=== PATIENT | female | born 1990 | race Caucasian/White ===

== ENCOUNTER 2017-08-24 13:18 | Emergency (ER) | payer SELFPAY ==
[2017-08-24 13:34] VITALS: BP 131/80
[2017-08-24 14:12] LABS: BASOPHILS % 0.5 (0.0-1.5); EOSINOPHILS % 4.5 % (0.0-6.8); MEAN CORPUSCULAR HEMOGLOBIN 27.2 pg (28.0-34.0); MEAN CORPUSCULAR VOLUME 87.3 fl (80.0-100.0); MONOCYTES % 3.2 % (0.0-11.0); NEUTROPHILS # 5.4 # k/uL (1.4-7.7)
--- NOTE | 2017-08-24 14:15 | ED Physician Documentation ---
General Adult - HISTORIAN Historian: patient - HPI Stated Complaint: N/V weakness Chief Complaint: General Adult Additional Information: NVD, cramping abdominal pain for 4 days. Thinks she got too hot working outside. No vomiting or diarrhea today, but remains nauseated with mld cramping. Urine 2-3 x today in < 4 hours, in small amounts. LNMP 08/05. - ROS CONST: denies: fever - PAST HX Past History: none Surgeries/Procedures: other (tonsillectomy) Allergies/Adverse Reactions: Allergies Allergy/AdvReac Type Severity Reaction Status Date / Time No Known Allergies Allergy Verified 08/24/17 13:34 Home Medications: Ambulatory Orders Medication Instructions Recorded Nitrofurantoin Monohyd/M-Cryst 100 mg PO Q12H #14 capsule 08/24/17 [Macrobid 100 mg Capsule] - SOCIAL HX Smoking History: cigarettes - FAMILY HX Family History: No - VITAL SIGNS Vital Signs: Vital Signs Temp Pulse Resp BP Pulse Ox 97.9 F 102 H 17 131/80 99 08/24/17 13:26 08/24/17 13:26 08/24/17 13:26 08/24/17 13:26 08/24/17 13:26 - REVIEWED ASSESSMENTS Nursing Assessment Reviewed: Yes Vitals Reviewed: Yes ED Results Lab/Radiology - Orders Orders: ED Orders Category Date Time Status Place IV Lock 1T Care 08/24/17 13:27 Active CBC/PLATELET/DIFF Routine Lab 08/24/17 14:10 Received CMP Routine Lab 08/24/17 14:10 Received URINALYSIS Routine Lab 08/24/17 Ordered URINE HCG [URINE HCG] Stat Lab 08/24/17 13:27 Ordered ck [CREATINE KINASE] Routine Lab 08/24/17 14:10 Received 0.9 % Sodium Chloride [Normal Saline] 1,000 ml Med 08/24/17 13:54 Discontinued IV .STK-MED NORMAL SALINE @ 1000 MLS/HR ( 1000ml BOLUS) Med 08/24/17 14:12 Ordered 0.9 % Sodium Chloride [Normal Saline] 1,000 ml IV Q1H Ondansetron HCl Rapdis [Zofran Odt] Med 08/24/17 13:59 Discontinued 4 mg .ROUTE .STK-MED ONE Ondansetron HCl Rapdis [Zofran Odt] Med 07/12/18 14:12 Once 4 mg PO NOW ONE Ondansetron HCl/Pf [Zofran 4 mg/2 ml] Med 08/24/17 13:55 Discontinued 4 mg .ROUTE .STK-MED ONE General Adult Physical Exam - PHYSICAL EXAM GENERAL APPEARANCE: mild distress EENT: eye inspection normal, ENT inspection normal (but very poor dentition), pharynx normal NECK: normal inspection, supple RESPIRATORY: breath sounds normal CVS: reg rate & rhythm, heart sounds normal ABDOMEN: soft, normal bowel sounds, non-tender BACK: normal inspection, no CVA tenderness SKIN: warm/dry, normal color EXTREMITIES: normal range of motion (gait and stance), other (scattered aging bruises) NEURO: CN's nml as tested, motor nml, sensation nml Discharge Clincal Impression: Urinary tract infection Prescriptions: Nitrofurantoin Monohyd/M-Cryst [Macrobid 100 mg Capsule] 100 mg PO Q12H #14 capsule Referrals: Primary Doctor,No [Primary Care Provider] - 2 Days Condition: Good Disposition: 01 HOME, SELF-CARE Decision to Admit: NO Decision Time: 14:55
[2017-08-24] MEDS: 0.9 % SODIUM CHLORIDE 1,000 ML IV ONE ×2 (14:19→14:20)
[2017-08-24] MEDS: ONDANSETRON HCL 4 MG TAB.RAPDIS PO ONE (14:20)
[2017-08-24] MEDS: ONDANSETRON HCL/PF 4 MG/ 2ML VIAL ONE (14:20)
[2017-08-24] MEDS: ONDANSETRON HCL 4 MG TAB.RAPDIS ONE (14:20)
[2017-08-24 14:25] LABS: eGFR (African) > 60; eGFR (Non-African) > 60
[2017-08-25 08:11] LABS: APPEARANCE,URINE CLOUDY (CLEAR); COLOR,URINE YELLOW (YELLOW); OCCULT BLOOD,URINE TRACE-INTACT (NEGATIVE)
== END 2017-08-24 15:00 | disposition home or self-care (01) ==
LOC: ED 13:18
DX: N39.0 Urinary tract infection, site not specified (principal)
CPT/HCPCS: 80053; 82550; 85025; A9270; J7030; 81002; 87086; 96365; 99284; S1016

== ENCOUNTER 2018-02-21 11:40 | Emergency (ER) | payer SELFPAY ==
[2018-02-21] MEDS ORDERED: DIPHENOXYLATE /ATROPINE 2.5MG-0.025MG TABLET PO ONE (11:52)
[2018-02-21] MEDS ORDERED: ONDANSETRON HCL 4 MG TAB.RAPDIS PO ONE (11:52)
--- NOTE | 2018-02-21 12:00 | ED Physician Documentation ---
Nausea/Vomiting/Diarrhea - HISTORIAN Historian: patient - HPI Stated Complaint: nausea/vomiting/diarrhea Chief Complaint: Nausea,Vomiting,Diarrhea Additional Information: Patient presents to ED with a 3 day history of nausea/vomiting/diarrhea which has improved today. She denies fever or chills. Onset: days ago (3) Duration: waxing, waning Timing: gradual onset Context: denies: out of country travel, bad food Severity: moderate - Associated Symptoms Vomiting: frequent Diarrhea: watery Abdominal Pain: cramping - ROS CONST: denies: fever, chills CVS/RESP: denies: chest pain, shortness of breath GI/: none EYES/ENT: none MS/SKIN/LYMPH: denies: ankle swelling NEURO/PSYCH: denies: headache - PAST HX Past History: none Surgeries/Procedures: none Allergies/Adverse Reactions: Allergies Allergy/AdvReac Type Severity Reaction Status Date / Time No Known Allergies Allergy Verified 08/24/17 13:34 Home Medications: Ambulatory Orders Medication Instructions Recorded Nitrofurantoin Monohyd/M-Cryst 100 mg PO Q12H #14 capsule 08/24/17 [Macrobid 100 mg Capsule] Loperamide HCl [Imodium A-D] 2 mg PO QID PRN #20 capsule 02/21/18 Ondansetron HCl Rapdis [Zofran Odt] 4 mg PO Q8 PRN #30 tab 02/21/18 - SOCIAL HX Smoking History: cigarettes, greater than 1 pack/day Alcohol Use: none Drug Use: none - FAMILY HX Family History: none - VITAL SIGNS Vital Signs: Vital Signs Temp Pulse Resp BP Pulse Ox 131/80 08/24/17 15:00 - REVIEWED ASSESSMENTS Nursing Assessment Reviewed: Yes Vitals Reviewed: Yes ED Results Lab/Radiology - Orders Orders: ED Orders Category Date Time Status Diphenoxylate HCl/Atropine [Lomotil] Med 02/21/18 11:52 Discontinued 1 each PO NOW ONE Ondansetron HCl Rapdis [Zofran Odt] Med 02/21/18 11:52 Discontinued 4 mg PO NOW ONE Nausea Physical Exam - EXAM General Appearance: no acute distress, alert EENT: TYE Neck: No: lymphadenopathy Respiratory: chest non-tender, breath sounds normal CVS: reg rate & rhythm, heart sounds normal Abdomen: non-tender Skin: warm/dry Extremities: non-tender, no edema Neuro/Psych: oriented X3 Discharge Clincal Impression: Gastroenteritis Prescriptions: Loperamide HCl [Imodium A-D] 2 mg PO QID PRN #20 capsule PRN Reason: Diarrhea Ondansetron HCl Rapdis [Zofran Odt] 4 mg PO Q8 PRN #30 tab PRN Reason: nausea/vomiting Referrals: Primary Doctor,No [Primary Care Provider] - 2 Days Additional Instructions: 1. Tylenol and/or Ibuprofen as needed for pain/fever 2. Drink plenty of fluids to maintain proper hydration 3. Take Lomitil and Zofran as needed for diarrhea and nausea 4. Follow up with PCP within 1 week 5. Return to ED for new or worsening symptoms Condition: Stable Disposition: 01 HOME, SELF-CARE Decision to Admit: NO Date of Decison to Admit: 02/21/18 Decision Time: 12:03
[2018-02-21 14:05] VITALS: BP 142/86
== END 2018-02-21 12:20 | disposition home or self-care (01) ==
LOC: ED 11:40
DX: K52.9 Noninfective gastroenteritis and colitis, unspecified (principal)
CPT/HCPCS: 99282; 99283

== ENCOUNTER 2018-09-18 16:29 | Emergency (ER) | payer SELFPAY ==
[2018-09-18 16:53] VITALS: BP 133/83
--- NOTE | 2018-09-18 16:55 | ED Physician Documentation ---
Skin Rash - HISTORIAN Historian: patient - HPI Stated Complaint: rash Chief Complaint: Skin Rash Additional Information: Patient is a 28-year-old unkept female that presents to the ER with her boyfriend- both with rash that has appeared over the last couple of days; she describes rash as intense itching on both arms, hands-web of fingers, armpits, base of scalp/neck and face. She denies any contact with allergens, no new soaps or detergents. Rash appears to be in the form of scabies- she did not act surprised- states she has not been diagnosed with scabies in the past. Her clothes are dirty- unknown last bath- hair is dirty and oily- she picks at the scabs- she admits to a history of meth use after asking about her teeth (she priorly denied drug use)- she smells of alcohol- admits to drinking heavy daily. Discussed treatment for scabies. Onset: days ago Timing: still present Duration: persistent since Location: facial, neck, RUE, LUE, R axillary, L axillary Quality: itchy Identified Cause?: Yes (scabies) Where: home Context: Medication Exposure: none Context: Food Exposure: none Context: Other Exposure: other (scabies) - ROS CONST: none CVS/RESP: none EYES/ENT: none GI/: none MS/SKIN/LYMPH: rash NEURO/PSYCH: none - PAST HX Past History: none Other History: none Surgeries/Procedures: No Immunizations: UTD Allergies/Adverse Reactions: Allergies Allergy/AdvReac Type Severity Reaction Status Date / Time No Known Allergies Allergy Verified 08/24/17 13:34 Home Medications: Ambulatory Orders Medication Instructions Recorded NK 09/18/18 - SOCIAL HX Smoking History: greater than 1 pack/day Alcohol Use: heavy Drug Use: methamphetamines - FAMILY HX Family History: none - VITAL SIGNS Vital Signs: Vital Signs Temp Pulse Resp BP Pulse Ox 99.3 F 106 H 14 133/83 97 09/18/18 16:35 09/18/18 16:59 09/18/18 16:59 09/18/18 16:59 09/18/18 16:59 - REVIEWED ASSESSMENTS Nursing Assessment Reviewed: Yes Vitals Reviewed: Yes Skin Rash Physical Exam - EXAM General Appearance: no acute distress, alert Skin: warm,dry, skin rash, erythema Location: face, posterior neck, back, extremities, other (webs of fingers) Character: linear, erythematous (burrows) Symptoms: warmth, tenderness Extremities: non-tender EENT: eyes nml inspection, lips nml, pharynx nml Neck: trachea midline, no swelling Respiratory: breath sounds normal CVS: heart sounds nml Abdomen: nml bowel sounds Neuro/Psych: oriented x3, CN's nml as tested, motor nml, sensation nml, mood/affect nml Discharge Clincal Impression: Scabies infestation Referrals: Primary Doctor,No [Primary Care Provider] - 2 Days Additional Instructions: Permethrin; apply from neck down to the soles of feet, wash off after 8-14 hours; repeat every 2-3 days (pt has no insurance- will use boyfriends) Wash linens in hot water Clean surfaces Shower daily Follow up with PCP in 2 weeks if no improvement Condition: Good Disposition: 01 HOME, SELF-CARE Decision to Admit: NO Decision Time: 17:18
== END 2018-09-18 16:59 | disposition home or self-care (01) ==
LOC: ED 16:29
DX: B86 Scabies (principal)
CPT/HCPCS: 99282; 99283

== ENCOUNTER 2018-12-20 09:02 | Emergency (ER) | payer SELFPAY ==
--- NOTE | 2018-12-20 09:22 | ED Physician Documentation ---
General Adult - HISTORIAN Historian: patient - HPI Stated Complaint: n/v/d Chief Complaint: General Adult Onset: days ago (5) Timing: still present Severity: moderate Further Comments: yes (Pt is a 28 yo female with n/v/d x 5 days. BM's have been watery with no blood seen. No fever. Some lightheadedness. No known sick contacts or ingestion of bad tasting food.) - ROS CONST: other (lightheadedness) EYES/ENT: none CVS/RESP: none GI/: vomiting, nausea, diarrhea MS/SKIN/LYMPH: none NEURO/PSYCH: dizziness - PAST HX Past History: other (Tonsillectomy) Allergies/Adverse Reactions: Allergies Allergy/AdvReac Type Severity Reaction Status Date / Time No Known Allergies Allergy Verified 12/20/18 09:23 Home Medications: Ambulatory Orders Medication Instructions Recorded CiproFLOXacin HCL [Cipro] 500 mg PO BID #10 tablet 12/20/18 - SOCIAL HX Smoking History: cigarettes Alcohol Use: occasionally - FAMILY HX Family History: No - VITAL SIGNS Vital Signs: Vital Signs Temp Pulse Resp BP Pulse Ox 133/83 09/18/18 16:59 - REVIEWED ASSESSMENTS Nursing Assessment Reviewed: Yes Vitals Reviewed: Yes Progress - Progress Progress: NS 1 L IVF x 2 Zofran 4 mg IV No flu shot -- pt agreeable to f/u for flu shot Rx Ciprofloxacin 500 mg. 1 po bid x 5 days. General Adult Physical Exam - PHYSICAL EXAM GENERAL APPEARANCE: moderate distress EENT: pharynx normal, other (poor dentition) NECK: normal inspection, supple RESPIRATORY: no resp distress, chest non-tender, breath sounds normal CVS: reg rate & rhythm, heart sounds normal ABDOMEN: soft, no organomegaly, normal bowel sounds, tenderness (diffuse abd tenderness) BACK: normal inspection, no CVA tenderness SKIN: warm/dry, normal color EXTREMITIES: non-tender, normal range of motion, no evidence of injury NEURO: oriented X3, motor nml, sensation nml Discharge Clincal Impression: Gastroenteritis Prescriptions: CiproFLOXacin HCL [Cipro] 500 mg PO BID #10 tablet Referrals: Primary Doctor,No [Primary Care Provider] - Condition: Good Disposition: 01 HOME, SELF-CARE Decision to Admit: NO Decision Time: 11:16
[2018-12-20 09:25] VITALS: BP 112/81
[2018-12-20] MEDS: ONDANSETRON HCL/PF 4 MG/ 2ML VIAL IVP ONE (09:35)
[2018-12-20] MEDS: 0.9 % SODIUM CHLORIDE 1,000 ML IV ONE ×2 (09:35→10:48)
[2018-12-20 09:55] LABS: BASOPHILS % 0.5 % (0.0-1.5)
[2018-12-20 09:56] LABS: NEUTROPHILS # 9.6 # k/uL (1.4-7.7)
[2018-12-20 10:05] LABS: eGFR (Non-African) > 60
[2018-12-21 07:40] LABS: APPEARANCE,URINE CLEAR (CLEAR); COLOR,URINE YELLOW (YELLOW); OCCULT BLOOD,URINE NEGATIVE (NEGATIVE); UROBILINOGEN URINE 0.2 Eu (0.2-1.0)
== END 2018-12-20 11:15 | disposition home or self-care (01) ==
LOC: ED 09:02
DX: K52.9 Noninfective gastroenteritis and colitis, unspecified (principal)
CPT/HCPCS: 80053; 80320; 81002; 85025; 96361; 96374; 99283; 99284; J2405; G0480; J7030; S1016